=== PATIENT | male | born 1965 | race Two or more races ===

== ENCOUNTER 2020-05-20 23:38 | Emergency (ER) | payer OTHER ==
[~2020-05-20] VITALS: Ht 185.4 cm; Wt 62.6 kg
[2020-05-20 23:47] VITALS: BP 125/72
== END 2020-05-21 01:20 | disposition home or self-care (01) ==
LOC: ER 23:43
DX: S62.390D Other fracture of second metacarpal bone, right hand, subsequent encounter for fracture with routine healing (principal); X58.XXXD Exposure to other specified factors, subsequent encounter